=== PATIENT | female | born 1960 | race Caucasian/White ===

== ENCOUNTER 2016-10-25 23:37 | Inpatient (IN) | payer OTHER ==
[~2016-10-25] VITALS: Ht 157.5 cm; Wt 138.0 kg
[~2016-10-25 23:37] MED LIST: ALBU18 IN; AMLO10TA2 PO; BECL0.07 INH; CALC0.25 PO; FURO40TA4 PO; IPRASOL39 NEB; LISI-646 PO; MAGN400C2 PO; METO25TA5 PO; POTA20IN2 IV; SILD20TA12 OR; TRAZ100T2 PO
[2016-10-26] MEDS ORDERED: IPRATROPIUM BROM 0.5 MG/2.5ML INH SOL NEB ONE (00:30)
[2016-10-26] MEDS ORDERED: ALBUTEROL SULF 2.5 MG/0.5ML(0.5%) NEB SOLN NEB ONE (00:30)
[2016-10-26 00:36] LABS: Basophils # (auto) 0.1 uL; Basophils % (auto) 0.7 % (0.0-2.0); Eosinophils # (auto) 0.3 uL; Eosinophils % (auto) 4.2 % (0.0-7.0); Hemoglobin 10.5 g/dL (12.2-16.2); Lymphocytes % (auto) 24.9 % (10.0-50.0); Mean Corpuscular Hemoglobin 27.4 pg (28.0-32.0); Mean Corpuscular Volume 88.3 fL (80.0-100.0); Mean Platelet Volume 7.9 fL (7.4-10.4); Monocytes # (auto) 0.6 uL; Monocytes % (auto) 7.2 % (0.0-12.0); Neutrophils # (auto) 4.9 uL; Platelet Count (auto) 266 10^3/uL (140-450); Red Cell Distribution Width 18.2 % (11.6-16.0); White Blood Cell 7.9 10^3/uL (4.4-10.8)
[2016-10-26 00:40] LABS: INR 0.98 (0.9-1.15); Partial Thromboplastin Time 23.2 sec (22.64-33.71); Prothrombin Time 10.1 sec (9.37-12.3)
[2016-10-26 00:45] LABS: Albumin 3.3 g/dL (3.4-5.0); BUN/Creatinine Ratio 14.9; Calcium 8.4 mg/dL (8.5-10.1); Potassium 4.8 mmol/L (3.5-5.1)
[2016-10-26 00:48] LABS: Bilirubin, Total 0.2 mg/dL (0.2-1.0)
[2016-10-26 01:09] LABS: B-Type Natriuretic Peptide 36.46 pg/mL (0-100)
[2016-10-26 01:13] LABS: Temperature: 22.7 C (20.0-25.0)
[2016-10-26] MEDS ORDERED: FUROSEMIDE 40 MG/4 ML VIAL IV ONE (05:30)
[2016-10-26] MEDS ORDERED: ASPirin 81 mg TAB PO ONE (06:15)
[2016-10-26] MEDS ORDERED: LACTULOSE 20Gm/30ML SOLN PO PRN (07:00)
[2016-10-26] MEDS ORDERED: DEXTROSE (50%) 50ML SYRG IV PRN ×2 (07:00)
[2016-10-26] MEDS ORDERED: NITROGLYCERIN 0.4 MG SL TAB SL PRN (07:30)
[2016-10-26] MEDS ORDERED: MORPHINE SULF INJ 2 MG/ML SYRINGE 1ML IV PRN (07:30)
[2016-10-26 09:40] VITALS: BP 92/58
[2016-10-26] MEDS: ALBUTEROL SULF 2.5 MG/0.5ML(0.5%) NEB SOLN NEB SCH ×4 (09:40→22:19)
[2016-10-26] MEDS: IPRATROPIUM BROM 0.5 MG/2.5ML INH SOL NEB SCH ×4 (09:40→22:19)
[2016-10-26] MEDS: METOPROLOL TARTRATE 25 MG TAB PO SCH ×2 (10:00→23:34)
[2016-10-26] MEDS: FUROSEMIDE 40 MG/4 ML VIAL IV SCH (10:00)
[2016-10-26] MEDS: amLODIPine BESYLATE 5 MG TAB PO SCH (10:00)
[2016-10-26] MEDS: LISINOPRIL 20 MG TAB PO SCH (10:00)
[2016-10-26] MEDS ORDERED: ENALAPRIL MALEATE 10 MG TAB PO SCH (10:00)
[2016-10-26] MEDS: SILDENAFIL CITRATE 20 MG TAB PO SCH ×2 (10:19→14:00)
[2016-10-26] MEDS: POTASSIUM CHL 20 Meq TABLET PO SCH (10:20)
[2016-10-26] MEDS: PANTOPRAZOLE SODIUM 40 MG/10 ML VIAL IV SCH (10:20)
[2016-10-26] MEDS: ASPirin 81 mg TAB PO SCH (10:20)
[2016-10-26] MEDS: MAGNESIUM OXIDE 400 MG TAB PO SCH ×2 (10:21→23:20)
[2016-10-26] MEDS: CALCITRIOL 0.25 MCG CAP PO SCH (10:21)
[2016-10-26] MEDS: ENOXAPARIN SOD 40 MG/0.4 ML SYRINGE SC SCH (10:22)
[2016-10-26] MEDS: InsuLIN REG 1unit/0.01ml Soln (100units/ml) SC SCH ×2 (12:00→23:20)
[2016-10-26] MEDS: ACCU-CHEK COMFORT CURVE STRIP VI SCH ×3 (12:29→23:20)
[2016-10-26] MEDS: SODIUM CHLOR 0.9% PF (SALINE LOCK) 10ML VIAL IV SCH ×2 (14:11→23:20)
[2016-10-26 15:11] VITALS: BP 89/45
[2016-10-26 18:17] VITALS: BP 112/54
[2016-10-26 20:47] VITALS: BP 98/45
[2016-10-26 22:13] VITALS: BP 106/70
[2016-10-26] MEDS ORDERED: ZOLPIDEM TARTRATE 5 MG TAB PO PRN (23:15)
[2016-10-26] MEDS: traZODone HCL 50 MG TAB PO SCH (23:22)
[2016-10-27] VITALS (9 sets, daily range): BP systolic 84–125; BP diastolic 39–83
[2016-10-27] MEDS: ALBUTEROL SULF 2.5 MG/0.5ML(0.5%) NEB SOLN NEB SCH ×6 (02:19→22:32)
[2016-10-27] MEDS: IPRATROPIUM BROM 0.5 MG/2.5ML INH SOL NEB SCH ×6 (02:19→22:32)
[2016-10-27] MEDS: SODIUM CHLOR 0.9% PF (SALINE LOCK) 10ML VIAL IV SCH ×3 (06:04→21:48)
[2016-10-27] MEDS: ACCU-CHEK COMFORT CURVE STRIP VI SCH ×4 (06:04→23:56)
[2016-10-27] MEDS: InsuLIN REG 1unit/0.01ml Soln (100units/ml) SC SCH ×5 (06:14→23:56)
[2016-10-27 06:46] LABS: Calcium 8.1 mg/dL (8.5-10.1); Potassium 5.1 mmol/L (3.5-5.1)
[2016-10-27 06:49] LABS: BUN/Creatinine Ratio 18.4
[2016-10-27 06:56] LABS: Albumin 2.8 g/dL (3.4-5.0); Bilirubin, Total 0.2 mg/dL (0.2-1.0); Total Protein 6.6 g/dL (6.4-8.2)
[2016-10-27 08:04] LABS: Basophils # (auto) 0 uL; Basophils % (auto) 0.2 % (0.0-2.0); DEFINITIVE VIEW TRANSMISSION; Eosinophils # (auto) 0.2 uL; Hematocrit 27.7 % (36.0-46.0); Hemoglobin 8.5 g/dL (12.2-16.2); Lymphocytes # (auto) 0.9 uL; Lymphocytes % (auto) 16.2 % (10.0-50.0); Mean Corpuscular Hemoglobin 26.9 pg (28.0-32.0); Mean Corpuscular Hgb Conc. 30.7 g/dL (32.0-36.0); Mean Corpuscular Volume 87.7 fL (80.0-100.0); Mean Platelet Volume 8.4 fL (7.4-10.4); Monocytes # (auto) 0.4 uL; Monocytes % (auto) 7.8 % (0.0-12.0); Neutrophils % (auto) 72.8 % (37.0-80.0); Platelet Count (auto) 177 10^3/uL (140-450); Red Cell Distribution Width 19.4 % (11.6-16.0); White Blood Cell 5.4 10^3/uL (4.4-10.8)
[2016-10-27 08:51] LABS: B-Type Natriuretic Peptide 23.88 pg/mL (0-100)
[2016-10-27 08:58] LABS: Temperature: 22.5 C (20.0-25.0)
[2016-10-27] MEDS: CALCITRIOL 0.25 MCG CAP PO SCH (10:00)
[2016-10-27] MEDS: ENOXAPARIN SOD 40 MG/0.4 ML SYRINGE SC SCH (10:00)
[2016-10-27] MEDS: amLODIPine BESYLATE 5 MG TAB PO SCH (10:00)
[2016-10-27] MEDS: METOPROLOL TARTRATE 25 MG TAB PO SCH ×2 (10:00→21:49)
[2016-10-27] MEDS: POTASSIUM CHL 20 Meq TABLET PO SCH (10:00)
[2016-10-27] MEDS: OPSUMIT 10 MG PO SCH (10:00)
[2016-10-27] MEDS: ASPirin 81 mg TAB PO SCH (10:00)
[2016-10-27] MEDS: PANTOPRAZOLE SODIUM 40 MG/10 ML VIAL IV SCH (10:00)
[2016-10-27] MEDS: FUROSEMIDE 40 MG/4 ML VIAL IV SCH (10:00)
[2016-10-27] MEDS: LISINOPRIL 20 MG TAB PO SCH (10:00)
[2016-10-27] MEDS: MAGNESIUM OXIDE 400 MG TAB PO SCH ×2 (10:00→21:49)
[2016-10-27] MEDS ORDERED: ALPRAZolam 0.25 MG TAB PO PRN (15:00)
[2016-10-27] MEDS ORDERED: IPRATROPIUM BROM 0.5 MG/2.5ML INH SOL NEB SCH (18:00)
[2016-10-27] MEDS: traZODone HCL 50 MG TAB PO SCH (21:49)
[2016-10-27] MEDS ORDERED: methylPREDNISolone SOD SUCC 40 MG/ML VL IV SCH (22:00)
[2016-10-27] MEDS: BUDESONIDE (INHALATION) 0.5 MG/2 ML NEB NEB SCH (22:32)
[2016-10-28] VITALS (8 sets, daily range): BP systolic 98–128; BP diastolic 43–96
[2016-10-28] MEDS: ALBUTEROL SULF 2.5 MG/0.5ML(0.5%) NEB SOLN NEB SCH ×5 (02:50→22:53)
[2016-10-28] MEDS: IPRATROPIUM BROM 0.5 MG/2.5ML INH SOL NEB SCH ×5 (02:50→22:53)
[2016-10-28] MEDS: SODIUM CHLOR 0.9% PF (SALINE LOCK) 10ML VIAL IV SCH ×3 (05:42→21:44)
[2016-10-28] MEDS: ACCU-CHEK COMFORT CURVE STRIP VI SCH ×4 (05:42→23:52)
[2016-10-28] MEDS: InsuLIN REG 1unit/0.01ml Soln (100units/ml) SC SCH ×4 (05:43→23:52)
[2016-10-28] MEDS: BUDESONIDE (INHALATION) 0.5 MG/2 ML NEB NEB SCH ×2 (06:05→18:06)
[2016-10-28] MEDS: HYDROcodone-ACET 10/325MG TAB PO PRN ×2 (08:07→19:37)
[2016-10-28] MEDS: amLODIPine BESYLATE 5 MG TAB PO SCH (10:00)
[2016-10-28] MEDS: PANTOPRAZOLE SODIUM 40 MG/10 ML VIAL IV SCH (10:17)
[2016-10-28] MEDS: ASPirin 81 mg TAB PO SCH (10:18)
[2016-10-28] MEDS: MAGNESIUM OXIDE 400 MG TAB PO SCH ×2 (10:18→21:41)
[2016-10-28] MEDS: ENOXAPARIN SOD 40 MG/0.4 ML SYRINGE SC SCH (10:18)
[2016-10-28] MEDS: FUROSEMIDE 40 MG/4 ML VIAL IV SCH (10:18)
[2016-10-28] MEDS: POTASSIUM CHL 20 Meq TABLET PO SCH (10:18)
[2016-10-28] MEDS: LISINOPRIL 20 MG TAB PO SCH (10:19)
[2016-10-28] MEDS: METOPROLOL TARTRATE 25 MG TAB PO SCH ×2 (10:19→21:41)
[2016-10-28] MEDS: CALCITRIOL 0.25 MCG CAP PO SCH (10:21)
[2016-10-28] MEDS: OPSUMIT 10 MG PO SCH (10:26)
[2016-10-28] MEDS: traZODone HCL 50 MG TAB PO SCH (21:41)
[2016-10-29] VITALS (8 sets, daily range): BP systolic 101–136; BP diastolic 44–82
[2016-10-29] MEDS: ALBUTEROL SULF 2.5 MG/0.5ML(0.5%) NEB SOLN NEB SCH ×6 (02:07→22:20)
[2016-10-29] MEDS: IPRATROPIUM BROM 0.5 MG/2.5ML INH SOL NEB SCH ×6 (02:07→22:20)
[2016-10-29] MEDS: ACCU-CHEK COMFORT CURVE STRIP VI SCH ×3 (05:38→17:28)
[2016-10-29] MEDS: InsuLIN REG 1unit/0.01ml Soln (100units/ml) SC SCH ×3 (05:39→17:28)
[2016-10-29] MEDS: SODIUM CHLOR 0.9% PF (SALINE LOCK) 10ML VIAL IV SCH ×3 (05:39→22:38)
[2016-10-29] MEDS ORDERED: MACI1TAB2 PO (06:01)
[2016-10-29] MEDS: amLODIPine BESYLATE 5 MG TAB PO SCH (10:00)
[2016-10-29] MEDS: LISINOPRIL 20 MG TAB PO SCH (10:00)
[2016-10-29] MEDS: BUDESONIDE (INHALATION) 0.5 MG/2 ML NEB NEB SCH ×2 (10:00→22:20)
[2016-10-29] MEDS: ASPirin 81 mg TAB PO SCH (10:16)
[2016-10-29] MEDS: CALCITRIOL 0.25 MCG CAP PO SCH (10:16)
[2016-10-29] MEDS: MAGNESIUM OXIDE 400 MG TAB PO SCH ×2 (10:16→22:37)
[2016-10-29] MEDS: PANTOPRAZOLE SODIUM 40 MG/10 ML VIAL IV SCH (10:16)
[2016-10-29] MEDS: FUROSEMIDE 40 MG/4 ML VIAL IV SCH (10:16)
[2016-10-29] MEDS: ENOXAPARIN SOD 40 MG/0.4 ML SYRINGE SC SCH (10:17)
[2016-10-29] MEDS: OPSUMIT 10 MG PO SCH (10:17)
[2016-10-29] MEDS: METOPROLOL TARTRATE 25 MG TAB PO SCH ×2 (10:17→22:37)
[2016-10-29] MEDS: POTASSIUM CHL 20 Meq TABLET PO SCH (10:17)
[2016-10-29] MEDS: traZODone HCL 50 MG TAB PO SCH (22:37)
[2016-10-30] MEDS: ACCU-CHEK COMFORT CURVE STRIP VI SCH ×2 (00:41→05:57)
[2016-10-30] MEDS: IPRATROPIUM BROM 0.5 MG/2.5ML INH SOL NEB SCH ×3 (02:43→09:58)
[2016-10-30] MEDS: ALBUTEROL SULF 2.5 MG/0.5ML(0.5%) NEB SOLN NEB SCH ×3 (02:43→09:58)
[2016-10-30 05:42] VITALS: BP 109/59
[2016-10-30] MEDS: SODIUM CHLOR 0.9% PF (SALINE LOCK) 10ML VIAL IV SCH (05:54)
[2016-10-30] MEDS: InsuLIN REG 1unit/0.01ml Soln (100units/ml) SC SCH ×2 (05:58)
[2016-10-30 06:07] VITALS: BP 93/61
[2016-10-30 08:00] VITALS: BP 93/61
[2016-10-30 09:00] VITALS: BP 109/58
[2016-10-30] MEDS: BUDESONIDE (INHALATION) 0.5 MG/2 ML NEB NEB SCH (09:59)
[2016-10-30] MEDS: METOPROLOL TARTRATE 25 MG TAB PO SCH (10:00)
[2016-10-30] MEDS: LISINOPRIL 20 MG TAB PO SCH (10:00)
[2016-10-30] MEDS: MAGNESIUM OXIDE 400 MG TAB PO SCH (10:00)
[2016-10-30] MEDS: ENOXAPARIN SOD 40 MG/0.4 ML SYRINGE SC SCH (10:00)
[2016-10-30] MEDS: FUROSEMIDE 40 MG/4 ML VIAL IV SCH (10:00)
[2016-10-30] MEDS: ASPirin 81 mg TAB PO SCH (10:00)
[2016-10-30] MEDS: PANTOPRAZOLE SODIUM 40 MG/10 ML VIAL IV SCH (10:00)
[2016-10-30] MEDS: POTASSIUM CHL 20 Meq TABLET PO SCH (10:00)
[2016-10-30] MEDS: amLODIPine BESYLATE 5 MG TAB PO SCH (10:00)
[2016-10-30] MEDS: CALCITRIOL 0.25 MCG CAP PO SCH (10:00)
[2016-10-30] MEDS: OPSUMIT 10 MG PO SCH (10:00)
[2016-10-30 10:38] VITALS: BP 109/58
[2016-10-30 11:54] VITALS: BP 93/61
== END 2016-10-30 11:00 | disposition home or self-care (01) | DRG 133 ==
LOC: ER 23:37 → TELE 23:38 → TELE-CENTR 10-27 17:08
PROVIDERS: ADMIT Family Medicine; ATTEND Internal Medicine
PROC: 5A09457 Assistance with Respiratory Ventilation, 24-96 Consecutive Hours, Continuous Positive Airway Pressure (ICD-10-PCS; principal; 2016-10-27)
DX: J96.20 Acute and chronic respiratory failure, unspecified whether with hypoxia or hypercapnia (principal); I50.33 Acute on chronic diastolic (congestive) heart failure; E11.22 Type 2 diabetes mellitus with diabetic chronic kidney disease; I27.2 Other secondary pulmonary hypertension; J44.1 Chronic obstructive pulmonary disease with (acute) exacerbation; Z68.43 Body mass index [BMI] 50.0-59.9, adult; E66.01 Morbid (severe) obesity due to excess calories; G47.33 Obstructive sleep apnea (adult) (pediatric); I35.0 Nonrheumatic aortic (valve) stenosis; B19.20 Unspecified viral hepatitis C without hepatic coma; E78.5 Hyperlipidemia, unspecified; F17.210 Nicotine dependence, cigarettes, uncomplicated; M06.9 Rheumatoid arthritis, unspecified; I13.0 Hypertensive heart and chronic kidney disease with heart failure and stage 1 through stage 4 chronic kidney disease, or unspecified chronic kidney disease; N18.3 Chronic kidney disease, stage 3 (moderate); Z99.81 Dependence on supplemental oxygen; Z88.8 Allergy status to other drugs, medicaments and biological substances; Z91.013 Allergy to seafood; Z79.899 Other long term (current) drug therapy; Z98.51 Tubal ligation status; Z90.89 Acquired absence of other organs; Z83.79 Family history of other diseases of the digestive system
CPT/HCPCS: 36415; 51702; 71010; 80053; 80061; 82962; 83036; 83880; 84484; 85025; 85610; 85730; 93005; 93306; 94640; 94660; 96374; 96375; C9113; J1815

== ENCOUNTER 2016-11-27 22:07 | Inpatient (IN) | payer OTHER ==
[~2016-11-27] VITALS: Ht 157.5 cm; Wt 140.0 kg
[~2016-11-27 22:07] MED LIST changes: +MACI1TAB2 PO
[2016-11-27] MEDS ORDERED: FUROSEMIDE 20 MG/2 ML VIAL ONE (22:10)
[2016-11-27] MEDS ORDERED: methylPREDNISolone SOD SUCC 125 MG/2 ML VL ONE (22:10)
[2016-11-27] MEDS ORDERED: methylPREDNISolone SOD SUCC 125 MG/2 ML VL IV ONE (22:15)
[2016-11-27] MEDS ORDERED: ALBUTEROL SULF 2.5 MG/0.5ML(0.5%) NEB SOLN NEB ONE (22:15)
[2016-11-27] MEDS ORDERED: IPRATROPIUM BROM 0.5 MG/2.5ML INH SOL NEB ONE (22:15)
[2016-11-27 22:45] LABS: Basophils # (auto) 0.1 uL; DEFINITIVE VIEW TRANSMISSION; Eosinophils # (auto) 0.2 uL; Eosinophils % (auto) 2.7 % (0.0-7.0); Hematocrit 27.1 % (36.0-46.0); Hemoglobin 8.4 g/dL (12.2-16.2); Lymphocytes # (auto) 1.8 uL; Lymphocytes % (auto) 20.6 % (10.0-50.0); Mean Corpuscular Hemoglobin 25.9 pg (28.0-32.0); Mean Corpuscular Hgb Conc. 30.9 g/dL (32.0-36.0); Mean Corpuscular Volume 83.8 fL (80.0-100.0); Mean Platelet Volume 8.8 fL (7.4-10.4); Monocytes # (auto) 0.7 uL; Monocytes % (auto) 8.4 % (0.0-12.0); Neutrophils # (auto) 5.8 uL; Neutrophils % (auto) 67.3 % (37.0-80.0); Platelet Count (auto) 288 10^3/uL (140-450); Red Cell Distribution Width 19.8 % (11.6-16.0); White Blood Cell 8.6 10^3/uL (4.4-10.8)
[2016-11-27] MEDS ORDERED: FUROSEMIDE 20 MG/2 ML VIAL IV ONE (23:00)
[2016-11-27 23:02] LABS: Urine RBC None Seen /hpf (0 - 4)
[2016-11-27 23:03] LABS: Albumin 3.4 g/dL (3.4-5.0); Anion Gap 8 (5-15); Aspartate Aminotransferase 11 U/L (15-37); BUN/Creatinine Ratio 19.8; Blood Urea Nitrogen 25 mg/dL (7-18); Calcium 8.4 mg/dL (8.5-10.1); Carbon Dioxide 29 mmol/L (21-32); Chloride 104 mmol/L (98-107); GFR African American 56 mL/min; GFR Non-African American 46 mL/min; Glucose 128 mg/dL (74-106); Magnesium 2.7 mg/dL (1.6-2.6); Potassium 4.4 mmol/L (3.5-5.1); Sodium 141 mmol/L (136-145)
[2016-11-27 23:07] LABS: Alkaline Phosphatase 100 U/L (45-117); Bilirubin, Total 0.2 mg/dL (0.2-1.0); Total Protein 7.6 g/dL (6.4-8.2)
[2016-11-27 23:11] LABS: Urine Bilirubin Negative (Negative); Urine Blood Negative /uL (Negative); Urine Color Yellow (Yellow); Urine Glucose Normal (Normal); Urine Hyaline Cast FEW /lpf (0 - 2); Urine Ketone Negative (Negative); Urine Mucus FEW (None Seen); Urine Nitrite Negative (Negative); Urine Squamous Epithelial Cell FEW /hpf (<5); Urine Urobilinogen Normal (Negative)
[2016-11-27 23:13] LABS: Temperature: 22.3 C (20.0-25.0)
[2016-11-27 23:24] LABS: Anisocytosis Moderate; Platelet Estimate Adequate
[2016-11-27 23:25] LABS: Hypochromia Moderate; Ovalocytes FEW; Tear Drop Cells FEW
[2016-11-27 23:58] VITALS: BP 131/55
[2016-11-28] VITALS (22 sets, daily range): BP systolic 100–138; BP diastolic 44–84
[2016-11-28] MEDS ORDERED: TEMAZEPAM 15 MG CAP PO PRN (09:15)
[2016-11-28] MEDS ORDERED: ACETAMINOPHEN 500 MG TAB PO PRN (09:15)
[2016-11-28] MEDS ORDERED: MORPHINE SULF INJ 2 MG/ML SYRINGE 1ML IV PRN ×2 (09:15)
[2016-11-28] MEDS ORDERED: ALBUTEROL SULF 2.5 MG/0.5ML(0.5%) NEB SOLN NEB PRN (09:15)
[2016-11-28] MEDS ORDERED: HYDROcodone-ACET 5/325MG TAB PO PRN (09:15)
[2016-11-28] MEDS ORDERED: PROMETHAZINE HCL 25 MG/ML 1ML IV PRN (09:15)
[2016-11-28] MEDS ORDERED: NITROGLYCERIN 0.4 MG SL TAB SL PRN (09:15)
[2016-11-28] MEDS ORDERED: DEXTROSE (50%) 50ML SYRG IV PRN (09:15)
[2016-11-28] MEDS ORDERED: LACTULOSE 20Gm/30ML SOLN PO PRN (09:15)
[2016-11-28] MEDS ORDERED: OSELTAMIVIR 75 MG CAP PO ONE (09:45)
[2016-11-28] MEDS ORDERED: ENOXAPARIN SOD 40 MG/0.4 ML SYRINGE SC SCH (10:00)
[2016-11-28] MEDS ORDERED: ENALAPRIL MALEATE 2.5 MG TAB PO SCH (10:00)
[2016-11-28] MEDS ORDERED: predniSONE 20 MG TAB PO ONE (10:15)
[2016-11-28] MEDS: CALCITRIOL 0.25 MCG CAP PO SCH (10:34)
[2016-11-28] MEDS: LISINOPRIL 20 MG TAB PO SCH (10:35)
[2016-11-28] MEDS: amLODIPine BESYLATE 5 MG TAB PO SCH (10:35)
[2016-11-28] MEDS: FUROSEMIDE 40 MG TAB PO SCH (10:36)
[2016-11-28] MEDS: METOPROLOL TARTRATE 25 MG TAB PO SCH ×2 (10:36→22:14)
[2016-11-28] MEDS: ENOXAPARIN SOD 40 MG/0.4 ML SYRINGE SC SCH (10:37)
[2016-11-28] MEDS: DOXYCYCLINE HYC 100MG/250ML 250 ML IV SCH ×2 (10:50→22:12)
[2016-11-28] MEDS: ACCU-CHEK COMFORT CURVE STRIP VI SCH ×3 (11:41→22:20)
[2016-11-28] MEDS: InsuLIN REG 1unit/0.01ml Soln (100units/ml) SC SCH ×3 (11:46→22:24)
[2016-11-28] MEDS: IPRATROPIUM BROM 0.5 MG/2.5ML INH SOL NEB SCH ×3 (12:00→23:45)
[2016-11-28] MEDS: BUDESONIDE (INHALATION) 0.5 MG/2 ML NEB NEB SCH ×2 (12:00→19:32)
[2016-11-28] MEDS ORDERED: SILDENAFIL CITRATE 20 MG TAB PO SCH (14:00)
[2016-11-28] MEDS ORDERED: MACI1TAB2 PO (14:13)
[2016-11-28] MEDS: SODIUM CHLOR 0.9% PF (SALINE LOCK) 10ML VIAL IV SCH ×2 (14:48→22:12)
[2016-11-28] MEDS: ALBUTEROL SULF 2.5 MG/0.5ML(0.5%) NEB SOLN NEB SCH ×2 (19:32→23:45)
[2016-11-28] MEDS ORDERED: OSELTAMIVIR 75 MG CAP PO SCH (22:00)
[2016-11-28] MEDS: traZODone HCL 50 MG TAB PO SCH (22:12)
[2016-11-28] MEDS: LORazepam 0.5 MG TAB PO PRN (23:14)
[2016-11-29] VITALS (45 sets, daily range): BP systolic 86–131; BP diastolic 37–99
[2016-11-29] MEDS ORDERED: methylPREDNISolone SOD SUCC 40 MG/ML VL IV SCH
[2016-11-29 04:18] LABS: Basophils # (auto) 0 uL; DEFINITIVE VIEW TRANSMISSION; Eosinophils # (auto) 0 uL; Hematocrit 22.3 % (36.0-46.0); Hemoglobin 7.1 g/dL (12.2-16.2); Lymphocytes # (auto) 0.7 uL; Lymphocytes % (auto) 8.2 % (10.0-50.0); Mean Corpuscular Hemoglobin 26.7 pg (28.0-32.0); Mean Corpuscular Hgb Conc. 31.8 g/dL (32.0-36.0); Mean Corpuscular Volume 83.9 fL (80.0-100.0); Monocytes # (auto) 0.7 uL; Monocytes % (auto) 8.4 % (0.0-12.0); Neutrophils # (auto) 7.2 uL; Neutrophils % (auto) 83.4 % (37.0-80.0); Platelet Count (auto) 263 10^3/uL (140-450); Red Cell Distribution Width 19.7 % (11.6-16.0); White Blood Cell 8.6 10^3/uL (4.4-10.8)
[2016-11-29 04:32] LABS: Potassium 5.5 mmol/L (3.5-5.1)
[2016-11-29 04:39] LABS: BUN/Creatinine Ratio 27.5; Calcium 8.4 mg/dL (8.5-10.1); Magnesium 2.9 mg/dL (1.6-2.6)
[2016-11-29 04:50] LABS: Bilirubin, Total 0.1 mg/dL (0.2-1.0); Total Protein 6.9 g/dL (6.4-8.2)
[2016-11-29 04:57] LABS: B-Type Natriuretic Peptide 182.14 pg/mL (0-100); Temperature: 22.7 C (20.0-25.0)
[2016-11-29] MEDS: SODIUM CHLOR 0.9% PF (SALINE LOCK) 10ML VIAL IV SCH ×3 (05:24→22:00)
[2016-11-29] MEDS: BUDESONIDE (INHALATION) 0.5 MG/2 ML NEB NEB SCH ×2 (06:03→19:08)
[2016-11-29] MEDS: IPRATROPIUM BROM 0.5 MG/2.5ML INH SOL NEB SCH ×3 (06:03→19:08)
[2016-11-29] MEDS: ALBUTEROL SULF 2.5 MG/0.5ML(0.5%) NEB SOLN NEB SCH ×3 (06:03→19:08)
[2016-11-29] MEDS: InsuLIN REG 1unit/0.01ml Soln (100units/ml) SC SCH ×4 (06:14→22:55)
[2016-11-29] MEDS: ACCU-CHEK COMFORT CURVE STRIP VI SCH ×4 (06:14→22:00)
[2016-11-29] MEDS: LORazepam 0.5 MG TAB PO PRN ×2 (06:14→20:26)
[2016-11-29] MEDS: predniSONE 20 MG TAB PO SCH (06:14)
[2016-11-29] MEDS: DOXYCYCLINE HYC 100MG/250ML 250 ML IV SCH ×2 (08:48→22:00)
[2016-11-29] MEDS: CALCITRIOL 0.25 MCG CAP PO SCH (08:48)
[2016-11-29] MEDS: METOPROLOL TARTRATE 25 MG TAB PO SCH ×2 (08:56→22:34)
[2016-11-29] MEDS: MAGNESIUM OXIDE 400 MG TAB PO SCH ×2 (08:57→22:00)
[2016-11-29] MEDS: amLODIPine BESYLATE 5 MG TAB PO SCH (08:58)
[2016-11-29] MEDS: ENOXAPARIN SOD 40 MG/0.4 ML SYRINGE SC SCH (08:58)
[2016-11-29] MEDS: LISINOPRIL 20 MG TAB PO SCH (08:59)
[2016-11-29] MEDS: FUROSEMIDE 40 MG TAB PO SCH (09:00)
[2016-11-29] MEDS ORDERED: OPSUMIT 10 MG PO SCH (10:00)
[2016-11-29] MEDS ORDERED: MACITENTAN PO SCH (10:00)
[2016-11-29] MEDS ORDERED: predniSONE 20 MG TAB PO SCH (10:00)
[2016-11-29] MEDS ORDERED: FUROSEMIDE 20 MG/2 ML VIAL IV ONE (16:30)
[2016-11-29] MEDS: traZODone HCL 50 MG TAB PO SCH (20:27)
[2016-11-29] MEDS: PANTOPRAZOLE SODIUM 40 MG/10 ML VIAL IV SCH (22:30)
[2016-11-30] VITALS (14 sets, daily range): BP systolic 95–121; BP diastolic 49–75
[2016-11-30] MEDS: ALBUTEROL SULF 2.5 MG/0.5ML(0.5%) NEB SOLN NEB SCH ×5 (00:57→23:45)
[2016-11-30] MEDS: IPRATROPIUM BROM 0.5 MG/2.5ML INH SOL NEB SCH ×5 (00:57→23:45)
[2016-11-30] MEDS: BUDESONIDE (INHALATION) 0.5 MG/2 ML NEB NEB SCH ×2 (06:00→23:45)
[2016-11-30] MEDS: SODIUM CHLOR 0.9% PF (SALINE LOCK) 10ML VIAL IV SCH ×3 (06:09→21:24)
[2016-11-30] MEDS: predniSONE 20 MG TAB PO SCH (06:10)
[2016-11-30] MEDS: InsuLIN REG 1unit/0.01ml Soln (100units/ml) SC SCH ×4 (06:18→22:23)
[2016-11-30] MEDS: ACCU-CHEK COMFORT CURVE STRIP VI SCH ×4 (06:18→22:09)
[2016-11-30 08:34] LABS: Basophils # (auto) 0 uL; Basophils % (auto) 0.3 % (0.0-2.0); DEFINITIVE VIEW TRANSMISSION; Eosinophils # (auto) 0.1 uL; Eosinophils % (auto) 1.1 % (0.0-7.0); Hematocrit 24.1 % (36.0-46.0); Hemoglobin 7.7 g/dL (12.2-16.2); Lymphocytes # (auto) 1.5 uL; Mean Corpuscular Hgb Conc. 31.9 g/dL (32.0-36.0); Mean Corpuscular Volume 81.5 fL (80.0-100.0); Mean Platelet Volume 8.7 fL (7.4-10.4); Monocytes # (auto) 0.7 uL; Monocytes % (auto) 10.9 % (0.0-12.0); Neutrophils # (auto) 4.3 uL; Neutrophils % (auto) 64.7 % (37.0-80.0); Platelet Count (auto) 240 10^3/uL (140-450); Red Cell Distribution Width 19.8 % (11.6-16.0); White Blood Cell 6.7 10^3/uL (4.4-10.8)
[2016-11-30 09:02] LABS: BUN/Creatinine Ratio 37.4; Calcium 8.5 mg/dL (8.5-10.1); Potassium 4.8 mmol/L (3.5-5.1)
[2016-11-30] MEDS: amLODIPine BESYLATE 5 MG TAB PO SCH (10:00)
[2016-11-30] MEDS: ENOXAPARIN SOD 40 MG/0.4 ML SYRINGE SC SCH (10:00)
[2016-11-30] MEDS: LISINOPRIL 20 MG TAB PO SCH (10:00)
[2016-11-30] MEDS: PANTOPRAZOLE SODIUM 40 MG/10 ML VIAL IV SCH ×2 (10:17→21:23)
[2016-11-30] MEDS: FUROSEMIDE 40 MG TAB PO SCH (10:17)
[2016-11-30] MEDS: METOPROLOL TARTRATE 25 MG TAB PO SCH ×2 (10:18→21:23)
[2016-11-30] MEDS: MAGNESIUM OXIDE 400 MG TAB PO SCH ×2 (10:18→21:23)
[2016-11-30] MEDS: CALCITRIOL 0.25 MCG CAP PO SCH (10:19)
[2016-11-30] MEDS: DOXYCYCLINE HYC 100MG/250ML 250 ML IV SCH ×2 (12:56→21:24)
[2016-11-30 14:44] LABS: Hemoglobin 8.7 g/dL (12.2-16.2)
[2016-11-30 14:51] LABS: Platelet Estimate Adequate
[2016-11-30 14:52] LABS: Anisocytosis Slight; Hypochromia Slight; Ovalocytes FEW; Tear Drop Cells FEW
[2016-11-30] MEDS: NICOTINE 21MG/24 HR TOPICAL PATCH TD SCH (17:32)
[2016-11-30] MEDS: LORazepam 0.5 MG TAB PO PRN (21:23)
[2016-11-30] MEDS: traZODone HCL 50 MG TAB PO SCH (21:23)
[2016-12-01] VITALS (8 sets, daily range): BP systolic 95–122; BP diastolic 39–88
[2016-12-01] MEDS: ALBUTEROL SULF 2.5 MG/0.5ML(0.5%) NEB SOLN NEB SCH ×3 (05:59→19:41)
[2016-12-01] MEDS: IPRATROPIUM BROM 0.5 MG/2.5ML INH SOL NEB SCH ×3 (05:59→19:39)
[2016-12-01] MEDS: BUDESONIDE (INHALATION) 0.5 MG/2 ML NEB NEB SCH ×2 (06:00→19:41)
[2016-12-01] MEDS: ACCU-CHEK COMFORT CURVE STRIP VI SCH ×4 (06:13→22:10)
[2016-12-01] MEDS: SODIUM CHLOR 0.9% PF (SALINE LOCK) 10ML VIAL IV SCH ×3 (06:14→22:09)
[2016-12-01] MEDS: InsuLIN REG 1unit/0.01ml Soln (100units/ml) SC SCH ×4 (06:14→22:20)
[2016-12-01] MEDS: predniSONE 20 MG TAB PO SCH (06:14)
[2016-12-01] MEDS: LORazepam 0.5 MG TAB PO PRN (07:58)
[2016-12-01] MEDS: LISINOPRIL 20 MG TAB PO SCH (10:00)
[2016-12-01] MEDS: ENOXAPARIN SOD 40 MG/0.4 ML SYRINGE SC SCH ×2 (10:00→10:10)
[2016-12-01] MEDS: METOPROLOL TARTRATE 25 MG TAB PO SCH ×2 (10:00→22:00)
[2016-12-01] MEDS: amLODIPine BESYLATE 5 MG TAB PO SCH (10:00)
[2016-12-01] MEDS: PANTOPRAZOLE SODIUM 40 MG/10 ML VIAL IV SCH ×2 (10:10→22:09)
[2016-12-01] MEDS: CALCITRIOL 0.25 MCG CAP PO SCH (10:10)
[2016-12-01] MEDS: MAGNESIUM OXIDE 400 MG TAB PO SCH ×2 (10:11→22:09)
[2016-12-01] MEDS: DOXYCYCLINE HYC 100MG/250ML 250 ML IV SCH ×2 (10:21→22:00)
[2016-12-01] MEDS: NICOTINE 21MG/24 HR TOPICAL PATCH TD SCH (10:21)
[2016-12-01] MEDS: FUROSEMIDE 40 MG TAB PO SCH (10:24)
[2016-12-01] MEDS: traZODone HCL 50 MG TAB PO SCH (22:09)
[2016-12-02] MEDS: ALBUTEROL SULF 2.5 MG/0.5ML(0.5%) NEB SOLN NEB SCH ×3 (00:38→11:43)
[2016-12-02] MEDS: IPRATROPIUM BROM 0.5 MG/2.5ML INH SOL NEB SCH ×3 (00:38→11:43)
[2016-12-02 04:38] VITALS: BP 109/50
[2016-12-02] MEDS: LORazepam 0.5 MG TAB PO PRN ×2 (05:05→11:06)
[2016-12-02] MEDS: SODIUM CHLOR 0.9% PF (SALINE LOCK) 10ML VIAL IV SCH ×2 (05:32→14:00)
[2016-12-02] MEDS: predniSONE 20 MG TAB PO SCH (06:21)
[2016-12-02] MEDS: InsuLIN REG 1unit/0.01ml Soln (100units/ml) SC SCH ×2 (06:22→11:53)
[2016-12-02] MEDS: ACCU-CHEK COMFORT CURVE STRIP VI SCH ×2 (06:22→11:52)
[2016-12-02] MEDS: BUDESONIDE (INHALATION) 0.5 MG/2 ML NEB NEB SCH (06:34)
[2016-12-02 09:00] VITALS: BP 120/56
[2016-12-02] MEDS: METOPROLOL TARTRATE 25 MG TAB PO SCH (10:00)
[2016-12-02] MEDS: MAGNESIUM OXIDE 400 MG TAB PO SCH (10:00)
[2016-12-02] MEDS: ENOXAPARIN SOD 40 MG/0.4 ML SYRINGE SC SCH (10:00)
[2016-12-02] MEDS: LISINOPRIL 20 MG TAB PO SCH (10:00)
[2016-12-02] MEDS: amLODIPine BESYLATE 5 MG TAB PO SCH (10:00)
[2016-12-02] MEDS: FUROSEMIDE 40 MG TAB PO SCH (10:00)
[2016-12-02] MEDS: CALCITRIOL 0.25 MCG CAP PO SCH (10:00)
[2016-12-02] MEDS: PANTOPRAZOLE SODIUM 40 MG/10 ML VIAL IV SCH (10:00)
[2016-12-02] MEDS: DOXYCYCLINE HYC 100MG/250ML 250 ML IV SCH (10:00)
[2016-12-02] MEDS: NICOTINE 21MG/24 HR TOPICAL PATCH TD SCH (10:00)
[2016-12-02 16:11] VITALS: BP 115/48
== END 2016-12-02 19:05 | disposition hospice, home (50) | DRG 140 ==
LOC: EDBD 22:07 → ER 22:09 → TELE 22:10 → ICU WEST 11-28 12:20 → DOU IN ICU 11-29 23:36 → TELE-EAST 12-01 09:43
PROVIDERS: ADMIT Internal Medicine; ATTEND Internal Medicine
PROC: 5A09557 Assistance with Respiratory Ventilation, Greater than 96 Consecutive Hours, Continuous Positive Airway Pressure (ICD-10-PCS; principal; 2016-11-27)
PROC: 30233N1 Transfusion of Nonautologous Red Blood Cells into Peripheral Vein, Percutaneous Approach (ICD-10-PCS; 2016-11-30)
DX: J44.0 Chronic obstructive pulmonary disease with (acute) lower respiratory infection (principal); J96.21 Acute and chronic respiratory failure with hypoxia; I50.33 Acute on chronic diastolic (congestive) heart failure; I27.2 Other secondary pulmonary hypertension; N17.9 Acute kidney failure, unspecified; E11.22 Type 2 diabetes mellitus with diabetic chronic kidney disease; N18.3 Chronic kidney disease, stage 3 (moderate); Z68.43 Body mass index [BMI] 50.0-59.9, adult; Z99.81 Dependence on supplemental oxygen; I13.0 Hypertensive heart and chronic kidney disease with heart failure and stage 1 through stage 4 chronic kidney disease, or unspecified chronic kidney disease; I50.9 Heart failure, unspecified; J44.1 Chronic obstructive pulmonary disease with (acute) exacerbation; E66.01 Morbid (severe) obesity due to excess calories; D63.8 Anemia in other chronic diseases classified elsewhere; I87.2 Venous insufficiency (chronic) (peripheral); E78.5 Hyperlipidemia, unspecified; G47.33 Obstructive sleep apnea (adult) (pediatric); B19.20 Unspecified viral hepatitis C without hepatic coma; Z51.5 Encounter for palliative care; I73.9 Peripheral vascular disease, unspecified; F17.210 Nicotine dependence, cigarettes, uncomplicated; I35.0 Nonrheumatic aortic (valve) stenosis; J96.22 Acute and chronic respiratory failure with hypercapnia; Z86.19 Personal history of other infectious and parasitic diseases; Z82.49 Family history of ischemic heart disease and other diseases of the circulatory system; Z88.8 Allergy status to other drugs, medicaments and biological substances; Z91.041 Radiographic dye allergy status; Z91.013 Allergy to seafood; Z82.5 Family history of asthma and other chronic lower respiratory diseases; J20.9 Acute bronchitis, unspecified
CPT/HCPCS: 36415; 36600; 51702; 71010; 80048; 80053; 80061; 81001; 82270; 82550; 82805; 82962; 83036; 83605; 83735; 83880; 84443; 84484; 85014; 85018; 85025; 85379; 86850; 86900; 86901; 86920; 87040; 87081; 87400; 93005; 94640; 94644; 94660; 96374; 96375; C9113; J1815; J3490

== ENCOUNTER 2017-03-05 14:31 | Inpatient (IN) | payer MEDICAID, OTHER ==
[~2017-03-05] VITALS: Ht 157.5 cm; Wt 138.1 kg
[2017-03-05 16:41] LABS: Calcium 8.5 mg/dL (8.5-10.1); Chloride 105 mmol/L (98-107); Potassium 4.4 mmol/L (3.5-5.1); Sodium 142 mmol/L (136-145)
[2017-03-05 16:46] LABS: Albumin 3.3 g/dL (3.4-5.0); Anion Gap 9 (5-15); Aspartate Aminotransferase 16 U/L (15-37); BUN/Creatinine Ratio 12.6; Blood Urea Nitrogen 14 mg/dL (7-18); Carbon Dioxide 28 mmol/L (21-32); GFR African American 65 mL/min; GFR Non-African American 54 mL/min; Glucose 104 mg/dL (74-106); Magnesium 2.1 mg/dL (1.6-2.6); Total Protein 7.6 g/dL (6.4-8.2)
[2017-03-05 16:50] LABS: Alkaline Phosphatase 87 U/L (45-117); Bilirubin, Total 0.3 mg/dL (0.2-1.0)
[2017-03-05 16:53] LABS: Basophils # (auto) 0 uL; Basophils % (auto) 0.5 % (0.0-2.0); DEFINITIVE Y; Eosinophils # (auto) 0.2 uL; Eosinophils % (auto) 3.7 % (0.0-7.0); Lymphocytes # (auto) 1.3 uL; Lymphocytes % (auto) 23.8 % (10.0-50.0); Mean Corpuscular Hemoglobin 23.1 pg (28.0-32.0); Mean Corpuscular Hgb Conc. 31.3 g/dL (32.0-36.0); Mean Corpuscular Volume 73.9 fL (80.0-100.0); Mean Platelet Volume 10.1 fL (7.4-10.4); Monocytes # (auto) 0.5 uL; Monocytes % (auto) 8.4 % (0.0-12.0); Neutrophils # (auto) 3.6 uL; Neutrophils % (auto) 63.6 % (37.0-80.0); Platelet Count (auto) 186 10^3/uL (140-450); Red Cell Distribution Width 19.9 % (11.6-16.0); White Blood Cell 5.7 10^3/uL (4.4-10.8)
[2017-03-05 16:54] LABS: INR 1.05 (0.9-1.15); Partial Thromboplastin Time 25.5 sec (22.64-33.71); Prothrombin Time 11.4 sec (9.37-12.3)
[2017-03-05 19:17] LABS: Anisocytosis Moderate; Microcytosis Moderate; Platelet Estimate Adequate
[2017-03-05 19:18] LABS: Ovalocytes FEW; Stomatocytes Few
[2017-03-05] MEDS ORDERED: cefTRIAXone 1GM/50ML D5W 50 ML IV ONE (19:30)
[2017-03-05] MEDS ORDERED: IPRATROPIUM BROM 0.5 MG/2.5ML INH SOL HHN ONE (19:45)
[2017-03-05] MEDS ORDERED: ASPirin-EC 81 mg tab PO ONE (19:45)
[2017-03-05] MEDS ORDERED: ALBUTEROL SULF 2.5 MG/0.5ML(0.5%) NEB SOLN HHN ONE (19:45)
[2017-03-05] MEDS ORDERED: ONDANSETRON HCL 4 MG/2 ML VIAL IV PRN (20:45)
[2017-03-05] MEDS ORDERED: NITROGLYCERIN 0.4 MG SL TAB SL PRN (20:45)
[2017-03-05] MEDS: ENOXAPARIN SOD 40 MG/0.4 ML SYRINGE SC SCH (20:58)
[2017-03-05] MEDS ORDERED: DEXTROSE (50%) 50ML SYRG IV PRN (21:00)
[2017-03-05] MEDS: HYDROmorphone HCL 2 MG/ML VL IV PRN (21:26)
[2017-03-05 21:30] LABS: B-Type Natriuretic Peptide 465.72 pg/mL (0-100)
[2017-03-05 21:37] LABS: Temperature: 23.3 C (20.0-25.0)
[2017-03-05] MEDS: SODIUM CHLOR 0.9% PF (SALINE LOCK) 10ML VIAL IV SCH (21:58)
[2017-03-05] MEDS: ALBUTEROL SULF 2.5 MG/0.5ML(0.5%) NEB SOLN NEB SCH (22:00)
[2017-03-05] MEDS: IPRATROPIUM BROM 0.5 MG/2.5ML INH SOL NEB SCH (22:00)
[2017-03-05] MEDS: methylPREDNISolone SOD SUCC 125 MG/2 ML VL IV SCH (22:01)
[2017-03-05 22:20] VITALS: BP 120/84
[2017-03-05 22:30] VITALS: BP 120/84
[2017-03-05] MEDS: CARVEDILOL 3.125 MG TAB PO SCH (23:33)
[2017-03-05] MEDS: MAGNESIUM OXIDE 400 MG TAB PO SCH (23:34)
[2017-03-05] MEDS: ATORVASTATIN 20 MG TAB PO SCH (23:35)
[2017-03-05] MEDS: METOPROLOL TARTRATE 25 MG TAB PO SCH (23:36)
[2017-03-05] MEDS: traZODone HCL 50 MG TAB PO SCH (23:37)
[2017-03-06] VITALS (11 sets, daily range): BP systolic 120–155; BP diastolic 44–90
[2017-03-06] MEDS: ACCU-CHEK COMFORT CURVE STRIP VI SCH ×5 (00:08→23:34)
[2017-03-06] MEDS: IPRATROPIUM BROM 0.5 MG/2.5ML INH SOL NEB SCH ×6 (02:00→22:19)
[2017-03-06] MEDS: ALBUTEROL SULF 2.5 MG/0.5ML(0.5%) NEB SOLN NEB SCH ×6 (02:00→22:19)
[2017-03-06] MEDS: InsuLIN REG 1unit/0.01ml Soln (100units/ml) SC SCH ×5 (03:11→23:33)
[2017-03-06] MEDS: SODIUM CHLOR 0.9% PF (SALINE LOCK) 10ML VIAL IV SCH ×3 (06:02→21:54)
[2017-03-06 07:16] LABS: Basophils # (auto) 0 uL; Basophils % (auto) 0.3 % (0.0-2.0); DEFINITIVE Y; Eosinophils # (auto) 0 uL; Eosinophils % (auto) 0.3 % (0.0-7.0); Hematocrit 34.5 % (36.0-46.0); Hemoglobin 10.8 g/dL (12.2-16.2); Lymphocytes # (auto) 0.8 uL; Lymphocytes % (auto) 13.6 % (10.0-50.0); Mean Corpuscular Hemoglobin 23.4 pg (28.0-32.0); Mean Corpuscular Hgb Conc. 31.2 g/dL (32.0-36.0); Mean Corpuscular Volume 74.9 fL (80.0-100.0); Monocytes # (auto) 0.1 uL; Monocytes % (auto) 1.5 % (0.0-12.0); Neutrophils # (auto) 5.2 uL; Neutrophils % (auto) 84.3 % (37.0-80.0); Platelet Count (auto) 186 10^3/uL (140-450); White Blood Cell 6.2 10^3/uL (4.4-10.8)
[2017-03-06 07:21] LABS: Red Cell Distribution Width 20.3 % (11.6-16.0)
[2017-03-06 07:22] LABS: Anisocytosis Moderate; Hypochromia Moderate; Microcytosis Moderate; Ovalocytes FEW; Platelet Estimate Adequate
[2017-03-06 07:33] LABS: Albumin 3.5 g/dL (3.4-5.0); BUN/Creatinine Ratio 12.3; Bilirubin, Total 0.3 mg/dL (0.2-1.0); Calcium 8.8 mg/dL (8.5-10.1); Total Protein 7.9 g/dL (6.4-8.2)
[2017-03-06] MEDS: HYDROmorphone HCL 2 MG/ML VL IV PRN ×3 (08:24→21:54)
[2017-03-06] MEDS: methylPREDNISolone SOD SUCC 125 MG/2 ML VL IV SCH ×2 (08:24→21:51)
[2017-03-06] MEDS: ENOXAPARIN SOD 40 MG/0.4 ML SYRINGE SC SCH ×2 (09:23→09:30)
[2017-03-06] MEDS: FUROSEMIDE 40 MG/4 ML VIAL IV SCH (09:23)
[2017-03-06] MEDS: ENALAPRIL MALEATE 10 MG TAB PO SCH (09:31)
[2017-03-06] MEDS: METOPROLOL TARTRATE 25 MG TAB PO SCH ×2 (10:00→21:57)
[2017-03-06] MEDS: NITROGLYCERIN 0.2MG/HR TOPICAL PATCH TD SCH (10:00)
[2017-03-06] MEDS ORDERED: NITROGLYCERIN 0.2MG/HR TOPICAL PATCH TD SCH (10:00)
[2017-03-06 11:03] LABS: Urine Bilirubin Negative (Negative); Urine Blood Negative /uL (Negative); Urine Color Yellow (Yellow); Urine Glucose Normal (Normal); Urine Hyaline Cast MANY /lpf (0 - 2); Urine Ketone Negative (Negative); Urine Mucus FEW (None Seen); Urine Nitrite Negative (Negative); Urine RBC <1 /hpf (0 - 4); Urine Squamous Epithelial Cell FEW /hpf (<5); Urine Urobilinogen Normal (Negative); Urine pH 5.5 (5.0-8.0)
[2017-03-06] MEDS: CARVEDILOL 3.125 MG TAB PO SCH ×2 (11:28→21:57)
[2017-03-06] MEDS: amLODIPine BESYLATE 5 MG TAB PO SCH (11:29)
[2017-03-06] MEDS: MAGNESIUM OXIDE 400 MG TAB PO SCH ×2 (11:29→21:54)
[2017-03-06] MEDS: ASPirin 81 mg TAB PO SCH (11:29)
[2017-03-06] MEDS: CALCITRIOL 0.25 MCG CAP PO SCH (11:29)
[2017-03-06] MEDS: VERAPAMIL HCL 120 mg ER tab PO SCH (14:57)
[2017-03-06] MEDS: ALPRAZolam 0.5 MG TAB PO PRN (19:42)
[2017-03-06] MEDS: ATORVASTATIN 20 MG TAB PO SCH (21:51)
[2017-03-06] MEDS: traZODone HCL 50 MG TAB PO SCH (21:53)
[2017-03-07] VITALS (7 sets, daily range): BP systolic 118–135; BP diastolic 50–90
[2017-03-07] MEDS: ALBUTEROL SULF 2.5 MG/0.5ML(0.5%) NEB SOLN NEB SCH ×6 (02:17→22:22)
[2017-03-07] MEDS: IPRATROPIUM BROM 0.5 MG/2.5ML INH SOL NEB SCH ×6 (02:17→22:22)
[2017-03-07] MEDS: HYDROmorphone HCL 2 MG/ML VL IV PRN ×3 (03:38→17:57)
[2017-03-07] MEDS: InsuLIN REG 1unit/0.01ml Soln (100units/ml) SC SCH ×3 (05:28→16:50)
[2017-03-07] MEDS: SODIUM CHLOR 0.9% PF (SALINE LOCK) 10ML VIAL IV SCH ×3 (05:29→22:24)
[2017-03-07] MEDS: ACCU-CHEK COMFORT CURVE STRIP VI SCH ×3 (05:29→16:50)
[2017-03-07] MEDS: methylPREDNISolone SOD SUCC 125 MG/2 ML VL IV SCH ×2 (08:38→21:10)
[2017-03-07] MEDS: NITROGLYCERIN 0.2MG/HR TOPICAL PATCH TD SCH (10:00)
[2017-03-07] MEDS: ENOXAPARIN SOD 40 MG/0.4 ML SYRINGE SC SCH (10:17)
[2017-03-07] MEDS: FUROSEMIDE 40 MG/4 ML VIAL IV SCH (10:18)
[2017-03-07] MEDS: ASPirin 81 mg TAB PO SCH (10:19)
[2017-03-07] MEDS: amLODIPine BESYLATE 5 MG TAB PO SCH (10:19)
[2017-03-07] MEDS: CALCITRIOL 0.25 MCG CAP PO SCH (10:19)
[2017-03-07] MEDS: CARVEDILOL 3.125 MG TAB PO SCH (10:20)
[2017-03-07] MEDS: ENALAPRIL MALEATE 10 MG TAB PO SCH (10:21)
[2017-03-07] MEDS: METOPROLOL TARTRATE 25 MG TAB PO SCH ×2 (10:43→22:00)
[2017-03-07] MEDS: MAGNESIUM OXIDE 400 MG TAB PO SCH ×2 (10:43→22:23)
[2017-03-07] MEDS: VERAPAMIL HCL 120 mg ER tab PO SCH (10:44)
[2017-03-07] MEDS: ACETYLCYSTEINE 20%(200MG/ML) SOL 4ML NEB SCH ×2 (14:08→22:22)
[2017-03-07] MEDS: ALPRAZolam 0.5 MG TAB PO PRN (21:11)
[2017-03-07] MEDS: BUDESONIDE (INHALATION) 0.5 MG/2 ML NEB NEB SCH (22:22)
[2017-03-07] MEDS: traZODone HCL 50 MG TAB PO SCH (22:23)
[2017-03-07] MEDS: ATORVASTATIN 20 MG TAB PO SCH (22:23)
[2017-03-08] VITALS (9 sets, daily range): BP systolic 102–147; BP diastolic 42–83
[2017-03-08] MEDS: ACCU-CHEK COMFORT CURVE STRIP VI SCH ×5 (00:04→23:43)
[2017-03-08] MEDS: InsuLIN REG 1unit/0.01ml Soln (100units/ml) SC SCH ×5 (00:07→23:44)
[2017-03-08] MEDS: ALBUTEROL SULF 2.5 MG/0.5ML(0.5%) NEB SOLN NEB SCH ×6 (02:17→22:17)
[2017-03-08] MEDS: IPRATROPIUM BROM 0.5 MG/2.5ML INH SOL NEB SCH ×5 (02:17→22:17)
[2017-03-08] MEDS: HYDROmorphone HCL 2 MG/ML VL IV PRN ×2 (04:30→20:22)
[2017-03-08] MEDS: SODIUM CHLOR 0.9% PF (SALINE LOCK) 10ML VIAL IV SCH ×3 (05:35→21:43)
[2017-03-08] MEDS: ACETYLCYSTEINE 20%(200MG/ML) SOL 4ML NEB SCH ×2 (05:53→14:44)
[2017-03-08 06:07] LABS: Basophils # (auto) 0 uL; Basophils % (auto) 0.1 % (0.0-2.0); CONDITION AutoValidated; DEFINITIVE SEE PRINTOUT; Eosinophils # (auto) 0 uL; Hematocrit 32.3 % (36.0-46.0); Lymphocytes # (auto) 0.6 uL; Lymphocytes % (auto) 7.7 % (10.0-50.0); Mean Corpuscular Volume 73.9 fL (80.0-100.0); Mean Platelet Volume 10.7 fL (7.4-10.4); Monocytes # (auto) 0.3 uL; Monocytes % (auto) 3.7 % (0.0-12.0); Neutrophils # (auto) 6.6 uL; Neutrophils % (auto) 88.5 % (37.0-80.0); Platelet Count (auto) 201 10^3/uL (140-450); Red Cell Distribution Width 19.5 % (11.6-16.0); White Blood Cell 7.4 10^3/uL (4.4-10.8)
[2017-03-08 06:14] LABS: Albumin 3.6 g/dL (3.4-5.0); BUN/Creatinine Ratio 21.8; Bilirubin, Total 0.2 mg/dL (0.2-1.0); Calcium 8.6 mg/dL (8.5-10.1); Potassium 5.5 mmol/L (3.5-5.1); Total Protein 7.5 g/dL (6.4-8.2)
[2017-03-08] MEDS: methylPREDNISolone SOD SUCC 125 MG/2 ML VL IV SCH ×2 (09:16→21:43)
[2017-03-08] MEDS: ALPRAZolam 0.5 MG TAB PO PRN ×2 (09:18→21:45)
[2017-03-08] MEDS: ASPirin 81 mg TAB PO SCH (09:26)
[2017-03-08] MEDS: FUROSEMIDE 40 MG/4 ML VIAL IV SCH (09:26)
[2017-03-08] MEDS: VERAPAMIL HCL 120 mg ER tab PO SCH (09:27)
[2017-03-08] MEDS: METOPROLOL TARTRATE 25 MG TAB PO SCH ×2 (09:28→21:43)
[2017-03-08] MEDS: amLODIPine BESYLATE 5 MG TAB PO SCH (09:29)
[2017-03-08] MEDS: MAGNESIUM OXIDE 400 MG TAB PO SCH ×2 (09:29→21:45)
[2017-03-08] MEDS: CALCITRIOL 0.25 MCG CAP PO SCH (09:30)
[2017-03-08] MEDS: ENALAPRIL MALEATE 10 MG TAB PO SCH (09:30)
[2017-03-08] MEDS: ENOXAPARIN SOD 40 MG/0.4 ML SYRINGE SC SCH (09:31)
[2017-03-08] MEDS: NITROGLYCERIN 0.2MG/HR TOPICAL PATCH TD SCH (09:41)
[2017-03-08] MEDS: BUDESONIDE (INHALATION) 0.5 MG/2 ML NEB NEB SCH ×2 (10:37→18:58)
[2017-03-08] MEDS: BUMETANIDE (0.25MG/ML) 4 ML VIAL IV SCH (17:53)
[2017-03-08] MEDS: ATORVASTATIN 20 MG TAB PO SCH (21:43)
[2017-03-08] MEDS: traZODone HCL 50 MG TAB PO SCH (21:43)
[2017-03-09] MEDS: ALBUTEROL SULF 2.5 MG/0.5ML(0.5%) NEB SOLN NEB SCH ×5 (01:49→22:57)
[2017-03-09] MEDS: IPRATROPIUM BROM 0.5 MG/2.5ML INH SOL NEB SCH ×5 (01:49→22:57)
[2017-03-09 05:00] VITALS: BP 110/76
[2017-03-09] MEDS: InsuLIN REG 1unit/0.01ml Soln (100units/ml) SC SCH ×3 (06:00→17:05)
[2017-03-09] MEDS: ACCU-CHEK COMFORT CURVE STRIP VI SCH ×3 (06:00→17:05)
[2017-03-09] MEDS: BUMETANIDE (0.25MG/ML) 4 ML VIAL IV SCH ×2 (06:00→17:05)
[2017-03-09] MEDS: SODIUM CHLOR 0.9% PF (SALINE LOCK) 10ML VIAL IV SCH ×3 (06:00→22:01)
[2017-03-09 06:38] LABS: Basophils # (auto) 0 uL; Basophils % (auto) 0.2 % (0.0-2.0); CONDITION AutoValidated; DEFINITIVE SEE PRINTOUT; Eosinophils # (auto) 0 uL; Eosinophils % (auto) 0.5 % (0.0-7.0); Hematocrit 29.9 % (36.0-46.0); Hemoglobin 9.6 g/dL (12.2-16.2); Lymphocytes # (auto) 0.3 uL; Lymphocytes % (auto) 7.7 % (10.0-50.0); Mean Corpuscular Hemoglobin 22.9 pg (28.0-32.0); Mean Corpuscular Volume 71.6 fL (80.0-100.0); Monocytes # (auto) 0.1 uL; Monocytes % (auto) 3.3 % (0.0-12.0); Neutrophils # (auto) 3.7 uL; Neutrophils % (auto) 88.3 % (37.0-80.0); White Blood Cell 4.2 10^3/uL (4.4-10.8)
[2017-03-09 06:39] LABS: Platelet Count (auto) 150 10^3/uL (140-450)
[2017-03-09] MEDS: BUDESONIDE (INHALATION) 0.5 MG/2 ML NEB NEB SCH ×2 (07:17→18:27)
[2017-03-09 07:20] LABS: BUN/Creatinine Ratio 30.8; Calcium 8.8 mg/dL (8.5-10.1); Potassium 5.1 mmol/L (3.5-5.1)
[2017-03-09 07:39] LABS: Anisocytosis Slight; Hypochromia Slight; Platelet Estimate Adequate
[2017-03-09 08:00] VITALS: BP 125/70
[2017-03-09] MEDS: HYDROmorphone HCL 2 MG/ML VL IV PRN ×3 (08:38→20:26)
[2017-03-09 09:00] VITALS: BP 125/70
[2017-03-09] MEDS: ENOXAPARIN SOD 40 MG/0.4 ML SYRINGE SC SCH (10:00)
[2017-03-09] MEDS: VERAPAMIL HCL 120 mg ER tab PO SCH (10:00)
[2017-03-09] MEDS: METOPROLOL TARTRATE 25 MG TAB PO SCH ×2 (10:00→22:02)
[2017-03-09] MEDS: amLODIPine BESYLATE 5 MG TAB PO SCH (10:00)
[2017-03-09] MEDS ORDERED: DOCUSATE SOD 100 MG CAP PO PRN (10:00)
[2017-03-09] MEDS: ENALAPRIL MALEATE 10 MG TAB PO SCH (10:00)
[2017-03-09] MEDS: NITROGLYCERIN 0.2MG/HR TOPICAL PATCH TD SCH (10:00)
[2017-03-09] MEDS: methylPREDNISolone SOD SUCC 125 MG/2 ML VL IV SCH ×2 (12:25→22:01)
[2017-03-09] MEDS: ASPirin 81 mg TAB PO SCH (12:26)
[2017-03-09] MEDS: MAGNESIUM OXIDE 400 MG TAB PO SCH ×2 (12:26→22:01)
[2017-03-09] MEDS: CALCITRIOL 0.25 MCG CAP PO SCH (12:27)
[2017-03-09 13:00] VITALS: BP 120/63
[2017-03-09 17:00] VITALS: BP 161/82
[2017-03-09 20:00] VITALS: BP 147/83
[2017-03-09] MEDS ORDERED: SENNA 8.6 MG TAB PO SCH (22:00)
[2017-03-09] MEDS: traZODone HCL 50 MG TAB PO SCH (22:01)
[2017-03-09] MEDS: ATORVASTATIN 20 MG TAB PO SCH (22:01)
[2017-03-09] MEDS: ALPRAZolam 0.5 MG TAB PO PRN (22:11)
[2017-03-10] MEDS: ACCU-CHEK COMFORT CURVE STRIP VI SCH ×3 (00:03→12:00)
[2017-03-10] MEDS: InsuLIN REG 1unit/0.01ml Soln (100units/ml) SC SCH ×3 (00:04→12:00)
[2017-03-10] MEDS: ALBUTEROL SULF 2.5 MG/0.5ML(0.5%) NEB SOLN NEB SCH ×4 (02:00→14:00)
[2017-03-10] MEDS: IPRATROPIUM BROM 0.5 MG/2.5ML INH SOL NEB SCH ×4 (02:00→14:00)
[2017-03-10] MEDS: HYDROmorphone HCL 2 MG/ML VL IV PRN (04:59)
[2017-03-10] MEDS: SODIUM CHLOR 0.9% PF (SALINE LOCK) 10ML VIAL IV SCH ×2 (05:46→14:00)
[2017-03-10] MEDS: BUMETANIDE (0.25MG/ML) 4 ML VIAL IV SCH (05:46)
[2017-03-10 05:59] LABS: Albumin 3.5 g/dL (3.4-5.0); BUN/Creatinine Ratio 36.2; Calcium 8.7 mg/dL (8.5-10.1); Potassium 5.2 mmol/L (3.5-5.1)
[2017-03-10 06:00] VITALS: BP 155/79
[2017-03-10 06:02] LABS: Bilirubin, Total 0.2 mg/dL (0.2-1.0); Total Protein 7.3 g/dL (6.4-8.2)
[2017-03-10 08:00] VITALS: BP 121/60
[2017-03-10] MEDS: methylPREDNISolone SOD SUCC 125 MG/2 ML VL IV SCH (09:00)
[2017-03-10 09:41] VITALS: BP 121/60
[2017-03-10] MEDS: METOPROLOL TARTRATE 25 MG TAB PO SCH (10:00)
[2017-03-10] MEDS: ENOXAPARIN SOD 40 MG/0.4 ML SYRINGE SC SCH (10:00)
[2017-03-10] MEDS: ASPirin 81 mg TAB PO SCH (10:00)
[2017-03-10] MEDS: MAGNESIUM OXIDE 400 MG TAB PO SCH (10:00)
[2017-03-10] MEDS: NITROGLYCERIN 0.2MG/HR TOPICAL PATCH TD SCH (10:00)
[2017-03-10] MEDS: CALCITRIOL 0.25 MCG CAP PO SCH (10:00)
[2017-03-10] MEDS: amLODIPine BESYLATE 5 MG TAB PO SCH (10:00)
[2017-03-10] MEDS: VERAPAMIL HCL 120 mg ER tab PO SCH (10:00)
[2017-03-10] MEDS: BUDESONIDE (INHALATION) 0.5 MG/2 ML NEB NEB SCH (10:21)
[2017-03-10 13:04] VITALS: BP 157/70
== END 2017-03-10 16:48 | disposition left against medical advice (07) | DRG 194 ==
LOC: EDBD 14:31 → ER 14:31 → TELE 14:32 → TELE-WESTW 22:20
PROVIDERS: ADMIT Family Medicine; ATTEND Internal Medicine
PROC: 5A09557 Assistance with Respiratory Ventilation, Greater than 96 Consecutive Hours, Continuous Positive Airway Pressure (ICD-10-PCS; principal; 2017-03-05)
DX: I13.0 Hypertensive heart and chronic kidney disease with heart failure and stage 1 through stage 4 chronic kidney disease, or unspecified chronic kidney disease (principal); N17.0 Acute kidney failure with tubular necrosis; J96.21 Acute and chronic respiratory failure with hypoxia; E11.22 Type 2 diabetes mellitus with diabetic chronic kidney disease; E88.81 Metabolic syndrome and other insulin resistance; D50.9 Iron deficiency anemia, unspecified; F17.210 Nicotine dependence, cigarettes, uncomplicated; I50.43 Acute on chronic combined systolic (congestive) and diastolic (congestive) heart failure; J84.10 Pulmonary fibrosis, unspecified; J44.1 Chronic obstructive pulmonary disease with (acute) exacerbation; N18.3 Chronic kidney disease, stage 3 (moderate); E66.01 Morbid (severe) obesity due to excess calories; B19.20 Unspecified viral hepatitis C without hepatic coma; E78.5 Hyperlipidemia, unspecified; E87.5 Hyperkalemia; G89.29 Other chronic pain; M06.9 Rheumatoid arthritis, unspecified; Z82.49 Family history of ischemic heart disease and other diseases of the circulatory system; Z82.5 Family history of asthma and other chronic lower respiratory diseases; Z90.89 Acquired absence of other organs; Z99.81 Dependence on supplemental oxygen; Z98.51 Tubal ligation status; Z88.5 Allergy status to narcotic agent; Z68.43 Body mass index [BMI] 50.0-59.9, adult; Z88.8 Allergy status to other drugs, medicaments and biological substances; Z91.041 Radiographic dye allergy status; Z91.013 Allergy to seafood; Z80.9 Family history of malignant neoplasm, unspecified
CPT/HCPCS: 36415; 71010; 80048; 80053; 80061; 81001; 82550; 82570; 82962; 83036; 83605; 83735; 83880; 84300; 84443; 84484; 85025; 85610; 85730; 87040; 93005; 94640; 94660; 94761; 96365; 96375; J0696; J1815; J2405

== ENCOUNTER 2017-11-25 17:47 | Inpatient (IN) | payer MEDICAID ==
[~2017-11-25] VITALS: Ht 157.5 cm; Wt 136.2 kg
[2017-11-25] MEDS ORDERED: SODIUM CHLORIDE 0.9% 1,000 ML IV ONE (17:54)
[2017-11-25] MEDS ORDERED: IPRATROPIUM BROM 0.5 MG/2.5ML INH SOL HHN ONE (18:00)
[2017-11-25] MEDS ORDERED: methylPREDNISolone SOD SUCC 125 MG/2 ML VL IV ONE (18:00)
[2017-11-25] MEDS ORDERED: LEVOFLOXACIN 500MG 100 ML IV ONE (18:00)
[2017-11-25] MEDS ORDERED: ALBUTEROL SULF 2.5 MG/0.5ML(0.5%) NEB SOLN HHN ONE (18:00)
[2017-11-25 18:45] LABS: Basophils # (auto) 0 uL; Basophils % (auto) 0.7 % (0.0-2.0); Eosinophils # (auto) 0.2 uL; Hemoglobin 10.7 g/dL (12.2-16.2); Lymphocytes # (auto) 0.5 uL
[2017-11-25 18:46] LABS: Alanine Aminotransferase 13 U/L (13-56); Albumin 3.7 g/dL (3.4-5.0); Alkaline Phosphatase 92 U/L (45-117); Anion Gap 10 (5-15); Aspartate Aminotransferase 20 U/L (15-37); BUN/Creatinine Ratio 14.4; Bilirubin, Total 0.8 mg/dL (0.2-1.0); Blood Urea Nitrogen 19 mg/dL (7-18); Calcium 9.2 mg/dL (8.5-10.1); Carbon Dioxide 27 mmol/L (21-32); Chloride 99 mmol/L (98-107); GFR African American 53 mL/min; GFR Non-African American 44 mL/min; Glucose 101 mg/dL (74-106); Magnesium 2.5 mg/dL (1.6-2.6); Potassium 4.1 mmol/L (3.5-5.1); Sodium 136 mmol/L (136-145); Total Protein 8.7 g/dL (6.4-8.2)
[2017-11-25 18:48] LABS: Hematocrit 35.3 % (36.0-46.0); Lymphocytes % (auto) 10.2 % (10.0-50.0); Mean Corpuscular Hemoglobin 19.5 pg (28.0-32.0); Mean Corpuscular Hgb Conc. 30.5 g/dL (32.0-36.0); Mean Corpuscular Volume 64.1 fL (80.0-100.0); Monocytes # (auto) 0.6 uL; Monocytes % (auto) 10.8 % (0.0-12.0); Neutrophils # (auto) 3.8 uL; Neutrophils % (auto) 74.3 % (37.0-80.0); Nucleated Red Blood Cells % 0.6 %; Platelet Count (auto) 200 10^3/uL (140-450); Red Cell Distribution Width 21.7 % (11.8-14.3); White Blood Cell 5.1 10^3/uL (4.4-10.8)
[2017-11-25] MEDS ORDERED: MORPHINE SULFATE 4 MG/ML SYR/VIAL IV ONE (19:45)
[2017-11-25] MEDS ORDERED: ONDANSETRON HCL 4 MG/2 ML VIAL IV ONE (19:45)
[2017-11-25] MEDS ORDERED: SPIR25TA89 PO (20:56)
[2017-11-25] MEDS ORDERED: ASPI325T4 PO (20:56)
[2017-11-25] MEDS ORDERED: OXYC325T14 PO (20:56)
[2017-11-25] MEDS ORDERED: CARV6.2551 PO (20:56)
[2017-11-25] MEDS ORDERED: NIC21P TOP (20:56)
[2017-11-25] MEDS ORDERED: ATO40T PO (20:56)
[2017-11-25] MEDS ORDERED: ALPR0.5T7 PO (20:56)
[2017-11-25] MEDS ORDERED: VERA1TAB9 PO (20:56)
[2017-11-25] MEDS ORDERED: traZODone HCL 50 MG TAB PO ONE (22:00)
[2017-11-25] MEDS ORDERED: ALPRAZolam 0.5 MG TAB PO ONE (22:00)
[2017-11-25] MEDS ORDERED: HYDROcodone-ACET 10/325MG TAB PO ONE (22:00)
[2017-11-25 22:39] LABS: Urine Bacteria NONE SEEN /hpf (None Seen); Urine Blood Negative /uL (Negative); Urine Specific Gravity 1.019 (1.001-1.035); Urine WBC <1 /hpf (0 - 5)
[2017-11-25] MEDS ORDERED: FUROSEMIDE 20 MG/2 ML VIAL IV ONE (22:45)
[2017-11-26] MEDS ORDERED: ACETAMINOPHEN 500 MG TAB PO PRN (01:30)
[2017-11-26] MEDS ORDERED: ONDANSETRON HCL 4 MG/2 ML VIAL IV PRN (01:30)
[2017-11-26] MEDS: LORazepam 2MG/ML-1ML VIAL IV PRN (02:46)
[2017-11-26] MEDS ORDERED: DOXYCYCLINE HYC 100MG/250ML 250 ML IV SCH (03:45)
[2017-11-26 03:59] VITALS: BP 101/45
[2017-11-26] MEDS ORDERED: LACTULOSE 20Gm/30ML SOLN PO PRN (04:00)
[2017-11-26 05:10] VITALS: BP 142/83
[2017-11-26] MEDS: ALBUTEROL SULF 2.5 MG/0.5ML(0.5%) NEB SOLN NEB SCH ×3 (05:59→18:54)
[2017-11-26] MEDS: IPRATROPIUM BROM 0.5 MG/2.5ML INH SOL NEB SCH ×3 (05:59→18:54)
[2017-11-26] MEDS: FUROSEMIDE 40 MG/4 ML VIAL IV SCH ×2 (06:37→18:24)
[2017-11-26 07:53] LABS: Basophils # (auto) 0 uL; Basophils % (auto) 0.3 % (0.0-2.0); Eosinophils # (auto) 0 uL; Hemoglobin 10.2 g/dL (12.2-16.2)
[2017-11-26 07:55] LABS: Eosinophils % (auto) 0.1 % (0.0-7.0); Hematocrit 34.3 % (36.0-46.0); Lymphocytes # (auto) 0.4 uL; Lymphocytes % (auto) 10.6 % (10.0-50.0); Mean Corpuscular Hemoglobin 19.2 pg (28.0-32.0); Mean Corpuscular Hgb Conc. 29.7 g/dL (32.0-36.0); Mean Corpuscular Volume 64.7 fL (80.0-100.0); Monocytes # (auto) 0.1 uL; Monocytes % (auto) 4.1 % (0.0-12.0); Neutrophils % (auto) 84.9 % (37.0-80.0); Nucleated Red Blood Cells % 0.2 %; Platelet Count (auto) 183 10^3/uL (140-450); White Blood Cell 3.5 10^3/uL (4.4-10.8)
[2017-11-26 08:00] VITALS: BP 130/83
[2017-11-26 08:00] LABS: Red Cell Distribution Width 21.9 % (11.8-14.3)
[2017-11-26 08:06] LABS: BUN/Creatinine Ratio 14.3; Calcium 9.1 mg/dL (8.5-10.1); Potassium 4.8 mmol/L (3.5-5.1)
[2017-11-26] MEDS: MORPHINE SULFATE 4 MG/ML SYR/VIAL IV PRN ×3 (08:08→18:25)
[2017-11-26] MEDS: DOXYCYCLINE HYC 100MG/250ML 250 ML IV SCH ×2 (09:00→21:23)
[2017-11-26] MEDS: CARVEDILOL 3.125 MG TAB PO SCH ×2 (11:03→21:44)
[2017-11-26] MEDS: SPIRONOLACTONE 25 MG TAB PO SCH (11:04)
[2017-11-26] MEDS: amLODIPine BESYLATE 5 MG TAB PO SCH (11:04)
[2017-11-26] MEDS: ASPirin-EC 81 mg tab PO SCH (11:04)
[2017-11-26 12:00] VITALS: BP 121/82
[2017-11-26 16:47] VITALS: BP 125/74
[2017-11-26] MEDS: ATORVASTATIN 20 MG TAB PO SCH (21:43)
[2017-11-26] MEDS: traZODone HCL 50 MG TAB PO SCH (21:44)
[2017-11-26 22:00] VITALS: BP 129/86
[2017-11-27] MEDS: MORPHINE SULFATE 4 MG/ML SYR/VIAL IV PRN ×6 (00:24→22:10)
[2017-11-27] MEDS: ALBUTEROL SULF 2.5 MG/0.5ML(0.5%) NEB SOLN NEB SCH ×4 (00:35→18:27)
[2017-11-27] MEDS: IPRATROPIUM BROM 0.5 MG/2.5ML INH SOL NEB SCH ×4 (00:35→18:27)
[2017-11-27 05:17] VITALS: BP 129/83
[2017-11-27] MEDS: FUROSEMIDE 40 MG/4 ML VIAL IV SCH ×2 (06:32→18:13)
[2017-11-27 08:29] VITALS: BP 116/62
[2017-11-27] MEDS: DOXYCYCLINE HYC 100MG/250ML 250 ML IV SCH ×2 (09:23→21:43)
[2017-11-27] MEDS: SPIRONOLACTONE 25 MG TAB PO SCH (09:23)
[2017-11-27] MEDS: CARVEDILOL 3.125 MG TAB PO SCH ×2 (09:24→21:46)
[2017-11-27] MEDS: amLODIPine BESYLATE 5 MG TAB PO SCH (09:24)
[2017-11-27] MEDS: ASPirin-EC 81 mg tab PO SCH (09:24)
[2017-11-27 13:00] VITALS: BP 119/60
[2017-11-27] MEDS: LORazepam 2MG/ML-1ML VIAL IV PRN (17:02)
[2017-11-27 17:23] VITALS: BP 122/89
[2017-11-27 21:22] VITALS: BP 153/92
[2017-11-27] MEDS: ATORVASTATIN 20 MG TAB PO SCH (21:47)
[2017-11-27] MEDS: traZODone HCL 50 MG TAB PO SCH (21:47)
[2017-11-28] MEDS: IPRATROPIUM BROM 0.5 MG/2.5ML INH SOL NEB SCH ×4 (00:39→19:12)
[2017-11-28] MEDS: ALBUTEROL SULF 2.5 MG/0.5ML(0.5%) NEB SOLN NEB SCH ×4 (00:39→19:11)
[2017-11-28] MEDS: LORazepam 2MG/ML-1ML VIAL IV PRN ×3 (01:11→18:29)
[2017-11-28] MEDS: MORPHINE SULFATE 4 MG/ML SYR/VIAL IV PRN ×5 (02:05→22:12)
[2017-11-28 05:44] VITALS: BP 139/91
[2017-11-28] MEDS: FUROSEMIDE 40 MG/4 ML VIAL IV SCH ×2 (06:01→18:38)
[2017-11-28 07:33] LABS: Eosinophils # (auto) 0.2 uL; Hematocrit 32.7 % (36.0-46.0); Hemoglobin 9.7 g/dL (12.2-16.2); Lymphocytes # (auto) 0.5 uL; Neutrophils # (auto) 4.4 uL; White Blood Cell 5.7 10^3/uL (4.4-10.8)
[2017-11-28 07:36] LABS: Basophils # (auto) 0 uL; Basophils % (auto) 0.8 % (0.0-2.0); Lymphocytes % (auto) 8.5 % (10.0-50.0); Mean Corpuscular Hemoglobin 19.3 pg (28.0-32.0); Mean Corpuscular Hgb Conc. 29.7 g/dL (32.0-36.0); Monocytes # (auto) 0.5 uL; Monocytes % (auto) 9.6 % (0.0-12.0); Neutrophils % (auto) 77.1 % (37.0-80.0); Nucleated Red Blood Cells % 0.2 %; Platelet Count (auto) 176 10^3/uL (140-450); Red Blood Cells 5.03 10^6/uL (4.0-5.20)
[2017-11-28 07:44] LABS: BUN/Creatinine Ratio 18.5; Calcium 9.2 mg/dL (8.5-10.1); Potassium 4.1 mmol/L (3.5-5.1)
[2017-11-28 07:49] LABS: Red Cell Distribution Width 21.7 % (11.8-14.3)
[2017-11-28 10:00] VITALS: BP 120/74
[2017-11-28] MEDS: ASPirin-EC 81 mg tab PO SCH (10:46)
[2017-11-28] MEDS: SPIRONOLACTONE 25 MG TAB PO SCH (10:46)
[2017-11-28] MEDS: CARVEDILOL 3.125 MG TAB PO SCH ×2 (10:47→22:11)
[2017-11-28] MEDS: DOXYCYCLINE HYC 100MG/250ML 250 ML IV SCH ×2 (10:48→20:42)
[2017-11-28] MEDS: amLODIPine BESYLATE 5 MG TAB PO SCH (10:50)
[2017-11-28 13:00] VITALS: BP 127/65
[2017-11-28 17:07] VITALS: BP 141/81
[2017-11-28 20:35] VITALS: BP 141/81
[2017-11-28 22:00] VITALS: BP 135/79
[2017-11-28] MEDS: ATORVASTATIN 20 MG TAB PO SCH (22:11)
[2017-11-28] MEDS: traZODone HCL 50 MG TAB PO SCH (22:11)
[2017-11-29] MEDS: IPRATROPIUM BROM 0.5 MG/2.5ML INH SOL NEB SCH ×4 (00:21→18:09)
[2017-11-29] MEDS: ALBUTEROL SULF 2.5 MG/0.5ML(0.5%) NEB SOLN NEB SCH ×4 (00:22→18:09)
[2017-11-29] MEDS: LORazepam 2MG/ML-1ML VIAL IV PRN ×2 (03:31→15:50)
[2017-11-29 05:00] VITALS: BP 114/71
[2017-11-29] MEDS: MORPHINE SULFATE 4 MG/ML SYR/VIAL IV PRN ×5 (05:18→23:15)
[2017-11-29] MEDS: FUROSEMIDE 40 MG/4 ML VIAL IV SCH ×2 (05:43→17:37)
[2017-11-29 08:22] VITALS: BP 119/68
[2017-11-29] MEDS: DOXYCYCLINE HYC 100MG/250ML 250 ML IV SCH ×2 (09:30→21:52)
[2017-11-29] MEDS: CARVEDILOL 3.125 MG TAB PO SCH ×2 (09:30→21:51)
[2017-11-29] MEDS: amLODIPine BESYLATE 5 MG TAB PO SCH (09:31)
[2017-11-29] MEDS: ASPirin-EC 81 mg tab PO SCH (09:31)
[2017-11-29] MEDS: SPIRONOLACTONE 25 MG TAB PO SCH (09:31)
[2017-11-29] MEDS: BUDESONIDE (INHALATION) 0.5 MG/2 ML NEB NEB SCH ×2 (11:22→18:09)
[2017-11-29 13:13] VITALS: BP 120/72
[2017-11-29 16:33] VITALS: BP 138/103
[2017-11-29] MEDS: ATORVASTATIN 20 MG TAB PO SCH (21:51)
[2017-11-29] MEDS: traZODone HCL 50 MG TAB PO SCH (21:51)
[2017-11-29 22:00] VITALS: BP 117/72
[2017-11-30] MEDS: LORazepam 2MG/ML-1ML VIAL IV PRN ×3 (00:15→17:52)
[2017-11-30] MEDS: IPRATROPIUM BROM 0.5 MG/2.5ML INH SOL NEB SCH ×4 (00:19→18:25)
[2017-11-30] MEDS: ALBUTEROL SULF 2.5 MG/0.5ML(0.5%) NEB SOLN NEB SCH ×4 (00:19→18:24)
[2017-11-30] MEDS: MORPHINE SULFATE 4 MG/ML SYR/VIAL IV PRN ×4 (03:32→21:41)
[2017-11-30 05:00] VITALS: BP 115/73
[2017-11-30] MEDS: FUROSEMIDE 40 MG/4 ML VIAL IV SCH ×2 (05:44→17:59)
[2017-11-30 08:00] VITALS: BP 133/66
[2017-11-30] MEDS: amLODIPine BESYLATE 5 MG TAB PO SCH (08:55)
[2017-11-30] MEDS: ASPirin-EC 81 mg tab PO SCH (08:55)
[2017-11-30] MEDS: DOXYCYCLINE HYC 100MG/250ML 250 ML IV SCH ×2 (08:55→21:29)
[2017-11-30] MEDS: SPIRONOLACTONE 25 MG TAB PO SCH (08:56)
[2017-11-30] MEDS: CARVEDILOL 3.125 MG TAB PO SCH ×2 (08:56→22:22)
[2017-11-30] MEDS: BUDESONIDE (INHALATION) 0.5 MG/2 ML NEB NEB SCH ×2 (09:56→18:25)
[2017-11-30 12:00] VITALS: BP 150/67
[2017-11-30 17:10] VITALS: BP 121/58
[2017-11-30 22:00] VITALS: BP 128/48
[2017-11-30] MEDS: ATORVASTATIN 20 MG TAB PO SCH (22:15)
[2017-11-30] MEDS: traZODone HCL 50 MG TAB PO SCH (22:22)
[2017-12-01] MEDS: LORazepam 2MG/ML-1ML VIAL IV PRN (01:51)
[2017-12-01] MEDS: MORPHINE SULFATE 4 MG/ML SYR/VIAL IV PRN ×3 (04:11→12:57)
[2017-12-01 05:00] VITALS: BP 101/69
[2017-12-01] MEDS: FUROSEMIDE 40 MG/4 ML VIAL IV SCH ×2 (06:00→18:00)
[2017-12-01] MEDS: IPRATROPIUM BROM 0.5 MG/2.5ML INH SOL NEB SCH ×4 (07:15→18:00)
[2017-12-01] MEDS: ALBUTEROL SULF 2.5 MG/0.5ML(0.5%) NEB SOLN NEB SCH ×4 (07:15→18:00)
[2017-12-01] MEDS: BUDESONIDE (INHALATION) 0.5 MG/2 ML NEB NEB SCH ×2 (07:15→18:00)
[2017-12-01 09:01] VITALS: BP 130/87
[2017-12-01] MEDS: amLODIPine BESYLATE 5 MG TAB PO SCH (09:11)
[2017-12-01] MEDS: CARVEDILOL 3.125 MG TAB PO SCH (09:11)
[2017-12-01] MEDS: ASPirin-EC 81 mg tab PO SCH (09:11)
[2017-12-01] MEDS: DOXYCYCLINE HYC 100MG/250ML 250 ML IV SCH (09:11)
[2017-12-01] MEDS: SPIRONOLACTONE 25 MG TAB PO SCH (10:23)
[2017-12-01 13:00] VITALS: BP 131/96
[2017-12-01 16:53] VITALS: BP 128/79
== END 2017-12-01 18:50 | disposition left against medical advice (07) | DRG 133 ==
LOC: EDBD 17:47 → ER 17:47 → TELE-CENTR 17:48
PROVIDERS: ADMIT Nurse Practitioner Family; ATTEND Internal Medicine
PROC: 5A09357 Assistance with Respiratory Ventilation, Less than 24 Consecutive Hours, Continuous Positive Airway Pressure (ICD-10-PCS; principal; 2017-11-25)
PROC: 5A09357 Assistance with Respiratory Ventilation, Less than 24 Consecutive Hours, Continuous Positive Airway Pressure (ICD-10-PCS; 2017-11-26)
PROC: 5A09357 Assistance with Respiratory Ventilation, Less than 24 Consecutive Hours, Continuous Positive Airway Pressure (ICD-10-PCS; 2017-11-28)
DX: J96.20 Acute and chronic respiratory failure, unspecified whether with hypoxia or hypercapnia (principal); R65.11 Systemic inflammatory response syndrome (SIRS) of non-infectious origin with acute organ dysfunction; I50.33 Acute on chronic diastolic (congestive) heart failure; Z68.43 Body mass index [BMI] 50.0-59.9, adult; N17.9 Acute kidney failure, unspecified; E11.22 Type 2 diabetes mellitus with diabetic chronic kidney disease; I27.20 Pulmonary hypertension, unspecified; E66.01 Morbid (severe) obesity due to excess calories; N18.3 Chronic kidney disease, stage 3 (moderate); I13.0 Hypertensive heart and chronic kidney disease with heart failure and stage 1 through stage 4 chronic kidney disease, or unspecified chronic kidney disease; Z66 Do not resuscitate; Z53.21 Procedure and treatment not carried out due to patient leaving prior to being seen by health care provider; F17.210 Nicotine dependence, cigarettes, uncomplicated; I87.2 Venous insufficiency (chronic) (peripheral); J44.9 Chronic obstructive pulmonary disease, unspecified; K59.00 Constipation, unspecified; B18.2 Chronic viral hepatitis C; F41.9 Anxiety disorder, unspecified; Z51.5 Encounter for palliative care; Z91.041 Radiographic dye allergy status; Z88.8 Allergy status to other drugs, medicaments and biological substances; Z91.013 Allergy to seafood; Z79.82 Long term (current) use of aspirin; Z82.49 Family history of ischemic heart disease and other diseases of the circulatory system; Z79.899 Other long term (current) drug therapy; Z90.89 Acquired absence of other organs; Z98.51 Tubal ligation status
CPT/HCPCS: 36415; 36600; 51702; 71045; 80048; 80053; 81001; 82805; 83605; 83735; 83880; 84484; 85025; 87040; 93005; 94640; 94644; 94660; 96365; 96375; 99291; J1956; J2405; J3490